=== PATIENT | female | born 1970 | race Caucasian/White ===

== ENCOUNTER → 2017-03-05 | Outpatient (CLI) | payer OTHER ==
--- NOTE | 2017-03-05 15:18 | RAD ---
DATE: 03/05/2017 EXAM: DIGITAL DIAGNOSTIC LT HISTORY: Mass left breast COMPARISON: 09/02/2016 This study was interpreted with the benefit of Computerized Aided Detection (CAD). FINDINGS: Breast Density: HETERO The breast parenchyma Is heterogeneiously dense, which could reduce sensitivity of mammography. Breast parenchyma level C. The area of concern, palpable abnormality, was marked. Corresponding to the palpable abnormality is a well-defined 2.6 cm mass at the 2:00 position 3 cm from the nipple. No additional change is seen relative to the previous exam. Targeted ultrasound was performed. Corresponding to the mass is a well-defined cyst measuring approximately 2.4 cm in greatest dimension. IMPRESSION: Simple cyst left breast BI-RADS CATEGORY: 2 BENIGN FINDING(S) RECOMMENDED FOLLOW-UP: 6M 6 MONTH FOLLOW-UP PQRS compliance statement: Patient information was entered into a reminder system with a target due date 09/02/2017 for the next mammogram. Mammography is a sensitive method for finding small breast cancers, but it does not detect them all and is not a substitute for careful clinical examination. A negative mammogram does not negate a clinically suspicious finding and should not result in delay in biopsying a clinically suspicious abnormality. "Our facility is accredited by the [employer] Mammography Program."
--- NOTE | 2017-03-05 15:29 | RAD ---
DATE: 03/05/2017 EXAM: DIGITAL DIAGNOSTIC LT HISTORY: Mass left breast COMPARISON: 09/02/2016 This study was interpreted with the benefit of Computerized Aided Detection (CAD). FINDINGS: Breast Density: HETERO The breast parenchyma Is heterogeneiously dense, which could reduce sensitivity of mammography. Breast parenchyma level C. The area of concern, palpable abnormality, was marked. Corresponding to the palpable abnormality is a well-defined 2.6 cm mass at the 2:00 position 3 cm from the nipple. No additional change is seen relative to the previous exam. Targeted ultrasound was performed. Corresponding to the mass is a well-defined cyst measuring approximately 2.4 cm in greatest dimension. IMPRESSION: Simple cyst left breast BI-RADS CATEGORY: 2 BENIGN FINDING(S) RECOMMENDED FOLLOW-UP: 6M 6 MONTH FOLLOW-UP PQRS compliance statement: Patient information was entered into a reminder system with a target due date 09/02/2017 for the next mammogram. Mammography is a sensitive method for finding small breast cancers, but it does not detect them all and is not a substitute for careful clinical examination. A negative mammogram does not negate a clinically suspicious finding and should not result in delay in biopsying a clinically suspicious abnormality. "Our facility is accredited by the [employer]ammography [employer]." DICTATED and SIGNED BY: FATEMEH SLAUGHTER MD DATE: 03/05/17 1513 MTDD
== END | disposition home or self-care (01) ==
LOC: MAMMO 14:37
PROVIDERS: ATTEND Obstetrics & Gynecology
DX: N63 Unspecified lump in breast (principal); N60.02 Solitary cyst of left breast
CPT/HCPCS: 76641; G0206; 77065

== ENCOUNTER → 2017-10-01 | Outpatient (CLI) | payer OTHER | END | disposition home or self-care (01) | LOC: KCIC MAMMO 12:27 | DX: Z12.31 Encounter for screening mammogram for malignant neoplasm of breast (principal) | CPT/HCPCS: 77063; 77067 ==

== ENCOUNTER → 2018-05-13 | Outpatient (CLI) | payer OTHER ==
[2018-05-13 11:14] LABS: BASO % 1 % (0-3); EOS # 0.1 x10^3/uL (0.0-0.7); EOS % 2 % (0-3); HEMATOCRIT 39.3 % (36.0-47.0); HEMOGLOBIN 13.4 g/dL (12.0-15.5); LYMPH # 1.1 x10^3/uL (1.0-4.8); LYMPH % 22 % (24-48); MEAN CORPUSCULAR HEMOGLOBIN 29 pg (25-35); MEAN CORPUSCULAR HGB CONC 34 g/dL (31-37); MEAN CORPUSCULAR VOLUME 86 fL (79-100); MONO # 0.4 x10^3/uL (0.0-1.1); MONO % 8 % (0-9); NEUT # 3.5 x10^3uL (1.8-7.7); NEUT % 68 % (31-73); PLATELET COUNT 234 x10^3/uL (140-400); RED BLOOD COUNT 4.58 x10^6/uL (3.50-5.40); RED CELL DISTRIBUTION WIDTH 13.7 % (11.5-14.5); WHITE BLOOD COUNT 5.2 x10^3/uL (4.0-11.0)
[2018-05-13 12:03] LABS: FREE T4 0.94 ng/dL (0.76-1.46); THYROID STIM HORMONE (TSH) 0.772 uIU/mL (0.358-3.74)
[2018-05-15 20:09] LABS: CYCLIC CITRULLIN PEP AB 8 units (0-19)
== END | disposition home or self-care (01) ==
LOC: LAB 10:49
PROVIDERS: ATTEND Family Medicine
DX: M25.50 Pain in unspecified joint (principal); R53.83 Other fatigue
CPT/HCPCS: 36415; 84439; 84443; 85025; 85651; 86038; 86200

== ENCOUNTER → 2018-06-10 | Outpatient (CLI) | payer OTHER ==
[2018-06-11 00:12] LABS: ESTRADIOL LEVEL 107.6 pg/mL (.)
[2018-06-11 01:15] LABS: FSH 62.5 mIU/mL (.)
== END | disposition home or self-care (01) ==
LOC: LAB 12:10
PROVIDERS: ATTEND Family Medicine
DX: N92.6 Irregular menstruation, unspecified (principal)
CPT/HCPCS: 36415; 82670; 83001; 83002

== ENCOUNTER → 2018-09-09 | Outpatient (CLI) | payer OTHER ==
[2018-09-09 19:14] LABS: ESTRADIOL LEVEL <5.0 pg/mL (.); FSH 82.2 mIU/mL (.); LUTEINIZING HORMONE 26.2 mIU/mL (.); PROGESTERONE <0.1 ng/mL (.)
[2018-09-12 07:13] LABS: TESTOSTERONE FREE 0.06 ng/dL (0.10-0.85); TESTOSTERONE TOTAL 9 ng/dL (8-48)
== END | disposition home or self-care (01) ==
LOC: LAB 12:21
PROVIDERS: ATTEND Obstetrics & Gynecology
DX: R53.83 Other fatigue (principal); Z68.1 Body mass index [BMI] 19.9 or less, adult
CPT/HCPCS: 36415; 82627; 82670; 83001; 83002; 84144; 84402; 84403; 84443

== ENCOUNTER → 2018-10-07 | Outpatient (CLI) | payer OTHER ==
--- NOTE | 2018-10-07 17:50 | KCIC ---
Bilateral digital screening mammograms with 3-D tomosynthesis: Reason for examination: Routine screening. Comparison is made to previous studies dated 10/01/2017, 03/05/2017 and 09/02/2016. Bilateral mammograms in CC and oblique projections were obtained with 2-D imaging and 3-D tomosynthesis imaging on a Siemens Inspiration unit and reviewed on the workstation. Interpretation was made with the benefit of CAD. The skin and nipples show no abnormalities. No abnormal axillary lymph nodes are seen. The breast parenchyma is extremely dense. (Breast density: Category D.) There continues to be a small circumscribed lesion at the 2:00 B position of the left breast which has regressed when compared to previous examination. There does however appear to be some new nodularity posterior centrally adjacent to the chest wall on the right oblique view. Further evaluation with ultrasound is recommended. There are no other new dominant masses, suspicious calcifications or architectural distortion. Impression: New nodularity posterior centrally adjacent to the chest wall on the right oblique view. Recommend further evaluation with ultrasound. Your patient's mammogram demonstrates that she has dense breast tissue (breast density category C or D), which could hide abnormalities, and if she has other risk factors for breast cancer that have been identified, she might benefit from supplemental screening tests that may be suggested by you as her ordering physician. Dense breast tissue, in and of itself, is a relatively common condition. Therefore, this information is not provided to cause undue concern, but rather to raise your awareness and to promote discussion with your patient regarding the presence of other risk factors, in addition to dense breast tissue. Your patient's mammography results will be sent to her. BI-RAD Category 0: Incomplete. Needs additional imaging evaluation. "Our facility is accredited by the [employer] Mammography [employer]." This patient's information has been entered into a reminder system for the patient to be notified with the results of her examination and a target date for the next mammogram. Electronically signed by: Aurora Benitez MD (10/07/2018 5:46 PM) [facility]
== END | disposition home or self-care (01) ==
LOC: KCIC MAMMO 13:32
PROVIDERS: ATTEND Obstetrics & Gynecology
DX: Z12.31 Encounter for screening mammogram for malignant neoplasm of breast (principal)
CPT/HCPCS: 77063; 77067

== ENCOUNTER → 2018-10-14 | Outpatient (CLI) | payer OTHER ==
--- NOTE | 2018-10-14 15:03 | RAD ---
INDICATION: 47 years year-old female presents for further evaluation of abnormality seen on prior mammogram 10/07/2018 TECHNIQUE: Targeted high resolution sonography of the region of clinical concern was performed. COMPARISON: Prior imaging dating back to 10/07/2018, 03/05/2017, 10/01/2017 FINDINGS: Sonographic evaluation of the area of focal demonstrates unremarkable fibroglandular tissue without evidence for suspicious cystic or solid mass. IMPRESSION: No sonographic evidence of malignancy. The findings on prior mammogram may have represented overlap of normal fibroglandular tissue. BI-RADS CATEGORY: 3 PROBABLY BENIGN FINDING(S)-SHORT INTERVAL FOLLOW-UP SUGGESTED RECOMMENDED FOLLOW-UP: 6M 6 MONTH FOLLOW-UP as the abnormality seen on prior mammography is not definitively seen by ultrasound, follow-up mammogram in 6 months including full field CC and MLO views of the right breast with associated spot compression views is recommended. PQRS compliance statement: Patient information was entered into a reminder system with a target due date 04/13/2019 for the next mammogram.
== END | disposition home or self-care (01) ==
LOC: US 14:06
PROVIDERS: ATTEND Obstetrics & Gynecology
DX: R92.8 Other abnormal and inconclusive findings on diagnostic imaging of breast (principal)
CPT/HCPCS: 76641

== ENCOUNTER → 2019-03-06 | Outpatient (CLI) | payer OTHER ==
--- NOTE | 2019-03-06 15:48 | KCIC ---
Examination: 5 views of the lumbar spine, 5 views of the cervical spine, 3 views of the bilateral knees HISTORY: History of back pain, knee pain, neck pain COMPARISON: 05/30/2015 FINDINGS: Bilateral knees: The alignment of the knee joint grossly appears unremarkable. There is no acute fracture identified. Cervical spine: The cervical vertebral body heights are maintained. The facets are well aligned. The spinolaminar line is maintained. Small anterior osteophyte formation identified at C5-C6 vertebral level. The lateral masses of C1 are aligned with C2 vertebra. The C2 dens appears intact. Lumbar spine: The lumbar vertebral body heights are maintained. No evidence of listhesis. The facets are well aligned. Mild degenerative changes identified in the facet joint likely degeneration particularly at L3-L4, L4-L5 vertebral level. IMPRESSION: 1. No acute osseous findings. 2. Mild degenerative changes lumbar and cervical spine. Electronically signed by: John Flores MD (03/06/2019 3:45 PM) [facility]
== END | disposition home or self-care (01) ==
LOC: KCIC 14:02
PROVIDERS: ATTEND Family Medicine
DX: M25.78 Osteophyte, vertebrae (principal); M47.812 Spondylosis without myelopathy or radiculopathy, cervical region; M47.816 Spondylosis without myelopathy or radiculopathy, lumbar region
CPT/HCPCS: 72050; 72110; 73562

== ENCOUNTER → 2019-05-26 | Outpatient (CLI) | payer OTHER ==
--- NOTE | 2019-05-26 11:10 | KCIC ---
EXAM: Right breast diagnostic mammogram with tomosynthesis. HISTORY: 48-year-old female presents for 6 month follow-up evaluation of asymmetry within the right breast demonstrated on a mammogram dated 10/07/2018. TECHNIQUE: Full-field digital craniocaudal, true lateral and mediolateral oblique 2D and 3D tomosynthesis images of the right breast are obtained for evaluation. Computer aided detection with Elite DailyD software version 9.3 was applied. COMPARISON: 10/07/2018, 03/05/2017 BREAST PARENCHYMAL DENSITY: Level D - Extremely dense. FINDINGS: There is no new suspicious mass, microcalcification or region of architectural distortion. The previously demonstrated asymmetry within the posterior aspect of the right breast is stable or slightly less conspicuous compared to the prior studies. No new suspicious lesion is seen. IMPRESSION: BI-RADS Category 2: Benign finding(s). RECOMMENDATION: Bilateral mammography in 4 months is recommended to correspond with a previously established mammography interval. If your mammogram demonstrates that you have dense breast tissue, which could hide abnormalities, and if you have other risk factors for breast cancer that have been identified, you might benefit from supplemental screening tests that may be suggested by your ordering physician. Dense breast tissue, in and of itself, is a relatively common condition. This information is not provided to cause undue concern, but rather to raise your awareness and to promote discussion with your physician regarding the presence of other risk factors, in addition to dense breast tissue. A report of your mammography results will be sent to you and your physician. You should contact your physician if you have any questions or concerns regarding this report. Mammography is a sensitive method for finding small breast cancers, but it does not detect them all and is not a substitute for careful clinical examination. A negative mammogram does not negate a clinically suspicious finding and should not result in delay in biopsying a clinically suspicious abnormality. PQRS compliance statement - Patient information was entered into a reminder system with a target due date for the next mammogram. "Our facility is accredited by the [employer] Mammography Program." Electronically signed by: Yamel Coelho MD (05/26/2019 11:07 AM) [facility]
== END | disposition home or self-care (01) ==
LOC: KCIC MAMMO 10:22
PROVIDERS: ATTEND Obstetrics & Gynecology
DX: R92.8 Other abnormal and inconclusive findings on diagnostic imaging of breast (principal)
CPT/HCPCS: 77065; G0279; 77061

== ENCOUNTER → 2019-06-08 | Outpatient (CLI) | payer OTHER ==
[2019-06-08 13:14] LABS: BASO % 0 % (0-3); EOS # 0.1 x10^3/uL (0.0-0.7); EOS % 2 % (0-3); HEMATOCRIT 40.2 % (36.0-47.0); HEMOGLOBIN 13.3 g/dL (12.0-15.5); LYMPH # 1.4 x10^3/uL (1.0-4.8); LYMPH % 27 % (24-48); MEAN CORPUSCULAR HEMOGLOBIN 29 pg (25-35); MEAN CORPUSCULAR HGB CONC 33 g/dL (31-37); MEAN CORPUSCULAR VOLUME 87 fL (79-100); MONO # 0.3 x10^3/uL (0.0-1.1); MONO % 5 % (0-9); NEUT # 3.5 x10^3/uL (1.8-7.7); NEUT % 66 % (31-73); PLATELET COUNT 237 x10^3/uL (140-400); RED BLOOD COUNT 4.61 x10^6/uL (3.50-5.40); WHITE BLOOD COUNT 5.3 x10^3/uL (4.0-11.0)
[2019-06-08 13:33] LABS: ALBUMIN/GLOBULIN RATIO 1.2 (1.0-1.7); CALCIUM 9.1 mg/dL (8.5-10.1); CREATININE 0.9 mg/dL (0.6-1.0); GFR 66.3; POTASSIUM 3.9 mmol/L (3.5-5.1); TOTAL BILIRUBIN 0.6 mg/dL (0.2-1.0); TOTAL PROTEIN 7.4 g/dL (6.4-8.2)
[2019-06-08 19:13] LABS: FSH 70.9 mIU/mL (.); LUTEINIZING HORMONE 36.7 mIU/mL (.)
== END | disposition home or self-care (01) ==
LOC: LAB 12:08
PROVIDERS: ATTEND Family Medicine
DX: R42 Dizziness and giddiness (principal); R23.2 Flushing
CPT/HCPCS: 36415; 80053; 82306; 82672; 83001; 83002; 84443; 84550; 85025

== ENCOUNTER → 2019-08-04 | Outpatient (CLI) | payer OTHER ==
[2019-08-04 10:24] LABS: CHOLESTEROL/HDL RATIO 2.5
== END | disposition home or self-care (01) ==
LOC: LAB 09:06
PROVIDERS: ATTEND Family Medicine
DX: Z13.220 Encounter for screening for lipoid disorders (principal)
CPT/HCPCS: 36415; 80061

== ENCOUNTER → 2019-08-07 | Outpatient (CLI) | payer OTHER ==
--- NOTE | 2019-08-08 11:23 | KCIC ---
Coronary artery calcium score dated 08/07/2019. No comparison available. Clinical Indication: Calcium screening. Technical factors: Computed tomography of the heart was performed with ECG gating, suspended respiration and without the administration of contrast material. Post processing was performed on the 3-D computer workstation using diastolic phase images to measure the amount of coronary vascular calcium. Scoring was aquired using the Agatston Method. Results: Thorax: No significant abnormality is identified in the lungs or mediastinum. Note that this CT exam is limited to the heart and adjacent structures. Coronary arteries: Calcium is absent. Total Agaston calcium score equals 0. Coronary vascular calcium is not detected with this exam. This does not absolutely rule out the presence of atherosclerotic plaque, including unstable plaque, but does imply a very low likelihood of significant luminal obstruction. A negative test may be consistent with a low risk of cardiovascular event in the next 2 to 5 years. Conclusions: Normal study, no coronary artery calcium identified. Recommendations: Healthy lifestyle choices including eating appropriately and exercise are encouraged. Additional supporting information concerning the findings and recommendation contained within this report can be found in the consensus statements on coronary vascular calcium published by the [employer] and [employer] 5 Conference (Circulation 1996; 94: 2485-1126; J Am Avis Cardiol 2000; 36: 326-340 and Circulation 2000; 101: 111-116). Electronically signed by: Daniele Ching MD (08/08/2019 11:19 AM) [facility] [place]
== END | disposition home or self-care (01) ==
LOC: KCIC CT 09:54
PROVIDERS: ATTEND Family Medicine
DX: Z13.6 Encounter for screening for cardiovascular disorders (principal)
CPT/HCPCS: 75571

== ENCOUNTER → 2019-09-11 | Outpatient (CLI) | payer OTHER ==
[~2019-09-11] MED LIST: ZOLPIDEM 5 MG TABLET. PO ONE
--- NOTE | 2019-09-14 13:20 | SLEEP ---
DATE OF STUDY: 09/12/2019 SLEEP STUDY ATTENDING PHYSICIAN: Daniele Beck MD REFERRING PHYSICIAN: Daphnie Jordan MD The patient is 48 years old who weighs 105 pounds with a BMI of 20. The patient's Evans[place] score was 5. The patient underwent diagnostic sleep study performed at [facility]. During the night study, the patient spent 440 minutes in bed and slept for 290 minutes with a sleep efficiency of 66%. Sleep latency was 23 minutes with a REM latency of 402 minutes. Sleep architecture showed increased stage 1 and stage 2 sleep, normal slow wave and reduced REM sleep. During the night study, the patient had no obstructive mixed or central apneas and no hypopneas. The patient's apnea-hypopnea index for the entire night was 0 per hour. Nocturnal oximetry study revealed mean oxygen saturations of 96% with the lowest of 88%. No clinically significant desaturations were observed. PLMS were seen at an index of 31 per hour and 5 per hour caused EEG arousals. EKG monitoring revealed a mean heart rate of 81 beats per minute, no sustained arrhythmias observed. Due to low AHI, the patient did not meet the split night criteria for CPAP initiation. IMPRESSION: 1. No clinically significant sleep disorder breathing. The patient's apnea-hypopnea index for the entire night was 0 per hour. 2. No clinically significant nocturnal hypoxia. 3. Moderate periodic limb movements. RECOMMENDATIONS: 1. The patient did not meet the split night criteria for CPAP initiation. 2. Avoid MAIL MANAGER depressants. 3. The patient should also be further evaluated for symptoms of restless legs during the day. TELMA FORD MD DR: MILTON/keith JOB#: [id number] / [id number] DAPHNIE Lucio MD, MICHAEL MD
== END | disposition home or self-care (01) ==
LOC: SLPLAB 19:15
PROVIDERS: ATTEND Internal Medicine Cardiovascular Disease
DX: G47.61 Periodic limb movement disorder (principal); R53.83 Other fatigue
CPT/HCPCS: 95810

== ENCOUNTER → 2019-09-28 | Day surgery (SDC) | payer OTHER ==
[~2019-09-28] MED LIST changes: +HYDROmorphone 2 MG/ML VIAL IV PRN; +IV RINGERS,LACTATED 1000ML 1,000 ML IV SCH; +LIDOCAINE 1% PF 2 ML VIAL. ID PRN; +MORPHINE SULFATE 2 MG/ML VIAL. IV PRN; +MULT-496 PO; +ONDANSETRON PF 4 MG/2 ML VIAL. IV PRN; +PROCHLORPERAZINE 10 MG/2 ML VIAL. IV PRN; +PROPOFOL 40 ML IV ONE; +SODIUM PHOSPHATES 19/7GM 133 ML ENEMA. PR ONE; -ZOLPIDEM 5 MG TABLET. PO ONE; +fentaNYL PF VIAL 100 MCG/2 ML VIAL IV PRN
--- NOTE | 2019-09-28 11:34 | PREOP HP ---
DATE OF SERVICE: DATE OF PROCEDURE: 09/28/2019 REASON FOR PROCEDURE: Dysphagia and colorectal cancer screening. HISTORY OF PRESENT ILLNESS: This is a 48-year-old female who presents with dysphagia and for colorectal cancer screening. ALLERGIES: 1. ERYTHROMYCIN. 2. SULFA. PAST MEDICAL HISTORY: Schatzki's ring and GERD as well as hemorrhoids. FAMILY MEDICAL HISTORY: Colon polyps in her father and mother. MEDICATIONS: MAR reviewed. SOCIAL HISTORY: No tobacco, alcohol or IV drug abuse. REVIEW OF SYSTEMS: A 13-point review of systems was done and is positive as per HPI and otherwise negative. PHYSICAL EXAMINATION: VITAL SIGNS: She is afebrile and her vital signs are stable. GENERAL: She is a well-developed, well-nourished female, in no apparent distress. HEENT: Oropharynx is clear. CARDIOVASCULAR: S1, S2. LUNGS: Clear. ABDOMEN: Normoactive bowel sounds, soft, nontender, nondistended. EXTREMITIES: No edema. NEUROLOGIC: Awake, alert and oriented x 3. ASSESSMENT AND PLAN: 1. Dysphagia. 2. Colorectal cancer screening. The risks and benefits of the upper and lower endoscopy were explained and she has agreed to proceed. Thank you for allowing me to participate in the care of this patient. CHARISSA LUCIANO MD DR: YEMI/keith JOB#: [id number] / [id number]
[2019-09-28 11:42] VITALS: BP 114/63
--- NOTE | 2019-09-29 17:06 | PATHOLOGY ---
[facility] Accession Number: [id number] . 01 Material submitted: . PART A: small bowel - SMALL BOWEL BIOPSY PART B: stomach - GASTRIC ANTRUM/BODY BIOPSY PART C: stomach - FUNDUS POLYP BIOPSY. Modifiers: fundus PART D: esophagus - DISTAL ESOPHAGUS BIOPSY. Modifiers: distal PART E: esophagus - MID ESOPHAGUS BIOPSY. Modifiers: mid . 01 Clinical history: . GERD, CRC . 02 Diagnosis: A. Small bowel biopsies: - No significant pathologic abnormalities. . B. Gastric biopsies, gastric body and gastric antrum: - Congestion and focal slight chronic inflammation. . C. Gastric biopsy, fundus polyp: - Fundic gland polyp . D. Esophageal biopsies, distal esophagus: - Segments of hyperplastic squamous esophageal mucosa and esophagogastric mucosa showing chronic inflammation. . E. Esophageal biopsy, middle esophagus: - Segment of squamous esophageal mucosa showing no significant pathologic abnormalities. . (JPM:henry; 09/29/2019) [facility] 09/29/2019 1704 Local . 02 Comment: Sections of the small bowel biopsy reveal segments of duodenal and small intestine mucosa. Where best oriented, the mucosal villi show no sprue-like changes or significant inflammatory changes. . Sections of the gastric biopsy reveal segments of gastric antral and gastric fundic mucosa showing congestion and focal slight chronic inflammation. A properly-controlled immunoperoxidase stain for Helicobacter is negative for Helicobacter organisms. . Sections of the gastric fundic polyp biopsy reveal a fundic gland polyp. There are no adenomatous changes or evidence of malignancy. . Sections of the distal esophageal biopsy reveal a segment of tangentially-oriented hyperplastic squamous esophageal mucosa, and a segment of esophagogastric mucosa showing mild to moderate chronic inflammation. The findings are consistent with reflux esophagitis. There is no evidence of Campbell's change, dysplasia, or malignancy. . Sections of the middle esophagus biopsy reveal a tangentially-oriented segment of squamous esophageal mucosa showing no significant pathologic abnormalities. . Special stain performed (B1): Immunoperoxidase stain for Helicobacter . (JPM:mm; 09/29/2019) . 02 Electronically signed: . Simón Zeng MD, Pathologist NPI- [id number] . 01 Gross description: . A. Received in formalin labeled "Chari Farnsworth, small bowel BX," are 5 segments of haines soft tissue measuring 1.1 x 0.9 x 0.3 cm in aggregate dimensions and ranging from 0.3 to 0.5 cm in maximum dimension. The specimen is submitted entirely in cassette A1. . B. Received in formalin labeled "Chari Farnsworth, gastric antrum and body BX," are 4 segments of haines soft tissue measuring 1.5 x 1.0 x 0.3 cm in aggregate dimensions and ranging from 0.4 to 0.7 cm in maximum dimension. The specimen is submitted entirely in cassette B1. . C. Received in formalin labeled "Chari Farnsworth, fundus polyp," and additionally labeled on the requisition as "BX," is a single segment of haines soft tissue measuring 0.6 cm in maximum dimension. The specimen is entirely submitted in cassette C1. . D. Received in formalin labeled "Chari Farnsworth, distal esophagus BX," are 2 segments of haines soft tissue measuring 1.1 x 0.2 x 0.1 cm in aggregate dimensions and ranging from 0.5 to 0.6 cm in maximum dimension. The specimen is submitted entirely in cassette D1. . E. Received in formalin labeled "Chari Farnsworth, mid esophagus BX," is a single segment of haines soft tissue measuring 0.5 cm in maximum dimension. The specimen is entirely submitted in cassette E1. (TSD; 09/28/2019) /TOB 09/28/2019 1752 Local . 02 Pathologist provided ICD-10: K29.50, K31.7, K20.9 . 02 CPT . 632968, 420033, [id number], [id number], [id number], [id number] Specimen Comment: A courtesy copy of this report has been sent to [phone], [phone] Specimen Comment: [id number] Specimen Comment: Report sent to / DR HOFF Performed at: 01 [facility] [address], [place], [place] [id number] MD Dante Bennett MD Phone: [phone] Performed at: 02 [facility] [address] [place], [place] [id number] MD Simón Zeng MD Phone: [phone]
== END ==
LOC: ENDOS 09:11
PROVIDERS: ATTEND Internal Medicine Gastroenterology
DX: Z12.11 Encounter for screening for malignant neoplasm of colon (principal); K29.50 Unspecified chronic gastritis without bleeding; K21.0 Gastro-esophageal reflux disease with esophagitis; K31.7 Polyp of stomach and duodenum; K22.2 Esophageal obstruction; K64.0 First degree hemorrhoids; K63.89 Other specified diseases of intestine; Z83.71 Family history of colonic polyps; Z88.1 Allergy status to other antibiotic agents
CPT/HCPCS: 43239; 43450; 45378; 81025; J2704

== ENCOUNTER → 2019-10-05 | Outpatient (CLI) | payer OTHER ==
[2019-09-28 11:42] VITALS: BP 114/63
[~2019-10-05] MED LIST changes: -HYDROmorphone 2 MG/ML VIAL IV PRN; -IV RINGERS,LACTATED 1000ML 1,000 ML IV SCH; -LIDOCAINE 1% PF 2 ML VIAL. ID PRN; -MORPHINE SULFATE 2 MG/ML VIAL. IV PRN; -ONDANSETRON PF 4 MG/2 ML VIAL. IV PRN; -PROCHLORPERAZINE 10 MG/2 ML VIAL. IV PRN; -PROPOFOL 40 ML IV ONE; -SODIUM PHOSPHATES 19/7GM 133 ML ENEMA. PR ONE; -fentaNYL PF VIAL 100 MCG/2 ML VIAL IV PRN
[2019-10-05 13:34] LABS: BILIRUBIN,URINE NEGATIVE (NEG); CLARITY,URINE CLEAR; COLOR,URINE YELLOW; NITRITE,URINE NEGATIVE (NEG); PROTEIN,URINE NEGATIVE (NEG-TRACE); UROBILINOGEN,URINE 0.2 mg/dL (0.2 mg/dL)
[2019-10-05 13:47] LABS: BACTERIA,URINE FEW /HPF (0-FEW); RBC,URINE 0 /HPF (0-2)
[2019-10-05 13:48] LABS: SQUAMOUS EPITHELIAL CELL,UR FEW /LPF
== END | disposition home or self-care (01) ==
LOC: LAB 12:57
PROVIDERS: ATTEND Family Medicine
DX: R30.0 Dysuria (principal)
CPT/HCPCS: 81001; 87086

== ENCOUNTER → 2019-10-12 | Outpatient (CLI) | payer OTHER ==
[2019-09-28 11:42] VITALS: BP 114/63
[2019-10-12 09:25] LABS: BACTERIA,URINE 0 /HPF (0-FEW); BILIRUBIN,URINE NEGATIVE (NEG); CLARITY,URINE CLEAR; COLOR,URINE YELLOW; NITRITE,URINE NEGATIVE (NEG); PROTEIN,URINE NEGATIVE (NEG-TRACE); RBC,URINE 0 /HPF (0-2); SQUAMOUS EPITHELIAL CELL,UR FEW /LPF; UROBILINOGEN,URINE 0.2 mg/dL (0.2 mg/dL); WBC,URINE OCC /HPF (0-4)
== END | disposition home or self-care (01) ==
LOC: LAB 08:54
PROVIDERS: ATTEND Family Medicine
DX: R30.0 Dysuria (principal)
CPT/HCPCS: 81001; 87086

== ENCOUNTER → 2019-11-14 | Outpatient (CLI) | payer OTHER ==
[2019-09-28 11:42] VITALS: BP 114/63
== END | disposition home or self-care (01) ==
LOC: SPEC 16:08
PROVIDERS: ATTEND Obstetrics & Gynecology
DX: Z01.419 Encounter for gynecological examination (general) (routine) without abnormal findings (principal)
CPT/HCPCS: 88175

== ENCOUNTER → 2020-01-24 | Outpatient (CLI) | payer OTHER ==
[2019-09-28 11:42] VITALS: BP 114/63
[2020-01-24 09:47] LABS: BASO % 1 % (0-3); EOS # 0.2 x10^3/uL (0.0-0.7); EOS % 4 % (0-3); HEMATOCRIT 43.3 % (36.0-47.0); HEMOGLOBIN 14.1 g/dL (12.0-15.5); LYMPH # 1.6 x10^3/uL (1.0-4.8); LYMPH % 27 % (24-48); MEAN CORPUSCULAR HEMOGLOBIN 28 pg (25-35); MEAN CORPUSCULAR HGB CONC 33 g/dL (31-37); MEAN CORPUSCULAR VOLUME 86 fL (79-100); MONO # 0.4 x10^3/uL (0.0-1.1); MONO % 8 % (0-9); NEUT # 3.7 x10^3/uL (1.8-7.7); NEUT % 61 % (31-73); PLATELET COUNT 276 x10^3/uL (140-400); RED BLOOD COUNT 5.02 x10^6/uL (3.50-5.40); RED CELL DISTRIBUTION WIDTH 13.4 % (11.5-14.5)
[2020-01-24 09:56] LABS: ALBUMIN 4.2 g/dL (3.4-5.0); ALBUMIN/GLOBULIN RATIO 1.2 (1.0-1.7); ALK PHOS 66 U/L (46-116); ALT (SGPT) 19 U/L (14-59); ANION GAP 6 (6-14); AST (SGOT) 15 U/L (15-37); BLOOD UREA NITROGEN 18 mg/dL (7-20); BUN/CREATININE RATIO 23 (6-20); CALCIUM 9.4 mg/dL (8.5-10.1); CARBON DIOXIDE 33 mmol/L (21-32); CHLORIDE 102 mmol/L (98-107); CHOLESTEROL 239 mg/dL (0-200); CREATININE 0.8 mg/dL (0.6-1.0); GFR 75.6; GLUCOSE 96 mg/dL (70-99); HDLC 103 mg/dL (40-60); LDLC 125 mg/dL (0-100); SODIUM 141 mmol/L (136-145); TOTAL PROTEIN 7.8 g/dL (6.4-8.2); TRIGLYCERIDES 53 mg/dL (0-150); URIC ACID 3.2 mg/dL (2.6-6.0); VLDLC 11 mg/dL (0-40)
[2020-01-24 09:58] LABS: C-REACTIVE PROTEIN < 0.5 mg/L (0-3.3); CHOLESTEROL/HDL RATIO 2.3
[2020-01-24 20:08] LABS: ANTI-STREPTOLYSIN O 25.6 IU/mL (0.0-200.0)
[2020-01-24 21:07] LABS: RHEUMATOID FACTOR <10.0 IU/mL (0.0-13.9)
== END | disposition home or self-care (01) ==
LOC: LAB 08:54
PROVIDERS: ATTEND Family Medicine
DX: Z13.220 Encounter for screening for lipoid disorders (principal); R42 Dizziness and giddiness; M25.50 Pain in unspecified joint
CPT/HCPCS: 36415; 80053; 80061; 84550; 85025; 85651; 86038; 86060; 86140; 86431

== ENCOUNTER → 2020-02-12 | Outpatient (CLI) | payer OTHER ==
[2019-09-28 11:42] VITALS: BP 114/63
[2020-02-13 13:11] LABS: C3 COMPLEMENT 115 mg/dL (82-167); C4 COMPLEMENT 27 mg/dL (14-44)
[2020-02-14 10:11] LABS: ANTI-DS DNA 1 IU/mL (0-9); RNP ANTIBODY 0.2 AI (0.0-0.9); SMITH AB <0.2 AI (0.0-0.9); SSA ANTIBODY <0.2 AI (0.0-0.9); SSB ANTIBODY <0.2 AI (0.0-0.9)
== END | disposition home or self-care (01) ==
LOC: LAB 13:41
PROVIDERS: ATTEND Internal Medicine Rheumatology
DX: M25.50 Pain in unspecified joint (principal)
CPT/HCPCS: 36415; 85651; 86140; 86160; 86235; 86255

== ENCOUNTER → 2020-03-20 | Outpatient (CLI) | payer OTHER ==
[2019-09-28 11:42] VITALS: BP 114/63
== END | disposition home or self-care (01) ==
LOC: LAB 13:18
PROVIDERS: ATTEND Internal Medicine Pulmonary Disease
DX: Z11.59 Encounter for screening for other viral diseases (principal)
CPT/HCPCS: U0003-CS

== ENCOUNTER → 2020-05-13 | Outpatient (CLI) | payer OTHER ==
[2019-09-28 11:42] VITALS: BP 114/63
[2020-05-13 13:44] LABS: BILIRUBIN,URINE NEGATIVE (NEG); CLARITY,URINE TURBID; COLOR,URINE YELLOW; NITRITE,URINE NEGATIVE (NEG); PH,URINE 7.5 (<5.0-8.0); PROTEIN,URINE NEGATIVE (NEG-TRACE); UROBILINOGEN,URINE 0.2 mg/dL (0.2 mg/dL)
[2020-05-13 13:58] LABS: AMORPHOUS SEDIMENT,UR PRESENT /HPF; BACTERIA,URINE FEW /HPF (0-FEW); RBC,URINE OCC /HPF (0-2); SQUAMOUS EPITHELIAL CELL,UR OCC /LPF; WBC,URINE OCC /HPF (0-4)
== END | disposition home or self-care (01) ==
LOC: LAB 12:48
PROVIDERS: ATTEND Family Medicine
DX: R30.0 Dysuria (principal)
CPT/HCPCS: 81001

== ENCOUNTER → 2020-07-09 | Outpatient (CLI) | payer OTHER ==
[2019-09-28 11:42] VITALS: BP 114/63
--- NOTE | 2020-07-09 13:22 | RAD ---
EXAM: Right knee, 3 views. HISTORY: Pain. COMPARISON: None. FINDINGS: 3 views of the right knee are obtained. There is no fracture, dislocation or subluxation. There is no significant joint effusion. IMPRESSION: No acute osseous finding. Electronically signed by: Yamel Coelho MD (07/09/2020 1:19 PM) [id number]
== END ==
LOC: RAD 12:35
PROVIDERS: ATTEND Family Medicine
DX: M25.561 Pain in right knee (principal)
CPT/HCPCS: 73562

== ENCOUNTER → 2020-07-25 | Outpatient (CLI) | payer OTHER ==
[2019-09-28 11:42] VITALS: BP 114/63
== END ==
LOC: LAB 13:44
PROVIDERS: ATTEND Internal Medicine Pulmonary Disease
DX: Z20.828 Contact with and (suspected) exposure to other viral communicable diseases (principal)
CPT/HCPCS: U0003

== ENCOUNTER → 2020-08-15 | Outpatient (CLI) | payer OTHER ==
[2019-09-28 11:42] VITALS: BP 114/63
--- NOTE | 2020-08-15 16:21 | KCIC ---
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 Chronic pain for years. Crepitus. History of ski accident. Concern for posterior chronic posterior lateral choroidal laxity or possible PCL injury. TECHNIQUE: Multiplanar multisequence MRI of the right knee was obtained without contrast. COMPARISON: Right knee radiograph 07/09/2020 FINDINGS: MENISCI: The medial and lateral menisci are intact. LIGAMENTS: The anterior and posterior cruciate ligaments are intact. The medial collateral ligament and lateral collateral ligament complex including popliteus tendon and iliotibial band are intact. EXTENSOR MECHANISM: The quadriceps and patellar tendons are intact. Fat pads are normal. Retinacula are intact. BONES AND CARTILAGE: No acute fracture or marrow edema. There is moderate deep partial and full-thickness cartilage fissure and several defects along the patella, greatest at the median ridge. Trochlear cartilage is intact. Medial and lateral compartment cartilage is intact. OTHER: No joint effusion tiny Snell cyst. Muscles and remaining tendons are intact. IMPRESSION: 1. No meniscal or ligamentous injury. 2. Moderate deep partial and full-thickness cartilage fissuring and small cartilage defects along the patella. Electronically signed by: Carol Ann Lara MD (08/15/2020 4:18 PM) [id number]
== END ==
LOC: KCIC MRI 13:46
PROVIDERS: ATTEND Orthopaedic Surgery
DX: M25.561 Pain in right knee (principal)
CPT/HCPCS: 73721

== ENCOUNTER → 2021-03-24 | Outpatient (CLI) | payer OTHER ==
[2019-09-28 11:42] VITALS: BP 114/63
[2021-03-24 10:40] LABS: BASO % 1 % (0-3); EOS # 0.1 x10^3/uL (0.0-0.7); EOS % 2 % (0-3); HEMOGLOBIN 13.4 g/dL (12.0-15.5); LYMPH # 1.2 x10^3/uL (1.0-4.8); LYMPH % 25 % (24-48); MEAN CORPUSCULAR HEMOGLOBIN 29 pg (25-35); MEAN CORPUSCULAR HGB CONC 33 g/dL (31-37); MEAN CORPUSCULAR VOLUME 88 fL (79-100); MONO # 0.4 x10^3/uL (0.0-1.1); MONO % 8 % (0-9); NEUT # 3.3 x10^3/uL (1.8-7.7); NEUT % 65 % (31-73); PLATELET COUNT 247 x10^3/uL (140-400); RED BLOOD COUNT 4.67 x10^6/uL (3.50-5.40); RED CELL DISTRIBUTION WIDTH 13.8 % (11.5-14.5); WHITE BLOOD COUNT 5.1 x10^3/uL (4.0-11.0)
[2021-03-24 10:41] LABS: BILIRUBIN,URINE NEGATIVE (NEG); CLARITY,URINE CLEAR; COLOR,URINE YELLOW; NITRITE,URINE NEGATIVE (NEG); PROTEIN,URINE NEGATIVE (NEG-TRACE); UROBILINOGEN,URINE 0.2 mg/dL (0.2 mg/dL)
[2021-03-24 10:52] LABS: AMORPHOUS SEDIMENT,UR PRESENT /HPF
[2021-03-24 10:53] LABS: BACTERIA,URINE FEW /HPF (0-FEW); RBC,URINE OCC /HPF (0-2)
[2021-03-24 11:07] LABS: ALBUMIN/GLOBULIN RATIO 1.2 (1.0-1.7); CALCIUM 9.1 mg/dL (8.5-10.1); CREATININE 0.7 mg/dL (0.6-1.0); GFR 87.9; TOTAL BILIRUBIN 0.7 mg/dL (0.2-1.0); TOTAL PROTEIN 7.3 g/dL (6.4-8.2)
[2021-03-24 11:09] LABS: CHOLESTEROL/HDL RATIO 2.3
[2021-03-24 19:16] LABS: FSH 108.4 mIU/mL (.); LUTEINIZING HORMONE 49.8 mIU/mL (.)
== END ==
LOC: LAB 10:03
PROVIDERS: ATTEND Family Medicine
DX: Z00.00 Encounter for general adult medical examination without abnormal findings (principal); M25.50 Pain in unspecified joint; E78.00 Pure hypercholesterolemia, unspecified; R23.2 Flushing
CPT/HCPCS: 36415; 80053; 80061; 81001; 82672; 83001; 83002; 84443; 85025; 87086

== ENCOUNTER → 2021-05-21 | Outpatient (CLI) | payer OTHER ==
[2019-09-28 11:42] VITALS: BP 114/63
[2021-05-21 23:07] LABS: FSH 108.2 mIU/mL (.); LUTEINIZING HORMONE 34.9 mIU/mL (.)
[2021-05-22 04:26] LABS: ESTRADIOL LEVEL 8.3 pg/mL (.)
[2021-05-22 05:15] LABS: PROGESTERONE 0.2 ng/mL (.)
[2021-05-24 11:15] LABS: TESTOSTERONE FREE 0.31 ng/dL (0.10-0.85)
== END ==
LOC: LAB 14:51
PROVIDERS: ATTEND Obstetrics & Gynecology
DX: N95.1 Menopausal and female climacteric states (principal)
CPT/HCPCS: 36415; 82627; 82670; 83001; 83002; 84144; 84402; 84403

== ENCOUNTER → 2021-08-11 | Outpatient (CLI) | payer OTHER ==
[2019-09-28 11:42] VITALS: BP 114/63
--- NOTE | 2021-08-11 15:43 | KCIC ---
EXAMINATION: Magnetic resonance imaging (MRI) of the cervical spine without contrast 08/11/2021 2:15 PM HISTORY: Cervicalgia. Headache. TECHNIQUE: Multiplanar multi-weighted MRI of the cervical spine was performed without intravenous con trast using the standard cervical spine protocol. Contrast information: None administered COMPARISON: None available. FINDINGS: The alignment of the cervical spine is normal. Vertebral bodies demonstrate normal signal intensity o n all sequences. No acute fracture is identified; however, if trauma is suspected, a CT scan would b e a more sensitive examination for fractures. The craniocervical junction is normal. The visualized portions of the skull base and the posterior fossa are normal. The spinal cord demonstrates normal signal intensity on all sequences. Mild disc height loss at C5-C6 with disc desiccation. Mild anteri or marginal osteophytosis at C5-C6. No soft tissue abnormality is identified. Normal signal voids ar e present in the vertebral arteries. C2-C3: The disk is normal in configuration. There is no facet arthropathy. There is no uncovertebral joint disease. There is no neuroforaminal stenosis. There is no spinal canal stenosis. C3-C4: The disk is normal in configuration. There is no facet arthropathy. There is no uncovertebral joint disease. There is no neuroforaminal stenosis. There is no spinal canal stenosis. C4-C5: The disk is normal in configuration. There is no facet arthropathy. There is no uncovertebral joint disease. There is no neuroforaminal stenosis. There is no spinal canal stenosis. C5-C6: There is a posterior disc osteophyte complex. Mild facet arthropathy, left greater than right. Mild uncovertebral joint disease. Mild to moderate left and mild right neural foraminal stenosis. Mi ld spinal canal sinuses without deformity of the cord or cord signal alteration. There is minimal lig amentum flavum infolding. C6-C7: The disk is normal in configuration. There is no facet arthropathy. There is no uncovertebral joint disease. There is no neuroforaminal stenosis. There is no spinal canal stenosis. C7-T1: The disk is normal in configuration. There is no facet arthropathy. There is no uncovertebral joint disease. There is no neuroforaminal stenosis. There is no spinal canal stenosis. IMPRESSION: Mild degenerative changes of the cervical spine as described in detail above. Electronically signed by: Charley Moses MD (08/11/2021 3:41 PM) [id number]
== END ==
LOC: KCIC MRI 13:47
PROVIDERS: ATTEND Family Medicine
DX: M47.812 Spondylosis without myelopathy or radiculopathy, cervical region (principal); M48.02 Spinal stenosis, cervical region; M48.8X2 Other specified spondylopathies, cervical region; M25.78 Osteophyte, vertebrae; G93.5 Compression of brain; R51.9 Headache, unspecified; M50.322 Other cervical disc degeneration at C5-C6 level
CPT/HCPCS: 72141

== ENCOUNTER → 2021-09-26 | Outpatient (CLI) | payer OTHER ==
[2019-09-28 11:42] VITALS: BP 114/63
[2021-09-26 14:48] LABS: BASO % 1 % (0-3); EOS # 0.1 x10^3/uL (0.0-0.7); EOS % 2 % (0-3); HEMATOCRIT 40.9 % (36.0-47.0); HEMOGLOBIN 13.5 g/dL (12.0-15.5); LYMPH # 1.3 x10^3/uL (1.0-4.8); LYMPH % 30 % (24-48); MEAN CORPUSCULAR HEMOGLOBIN 28 pg (25-35); MEAN CORPUSCULAR HGB CONC 33 g/dL (31-37); MEAN CORPUSCULAR VOLUME 84 fL (79-100); MONO # 0.2 x10^3/uL (0.0-1.1); MONO % 5 % (0-9); NEUT # 2.6 x10^3/uL (1.8-7.7); NEUT % 63 % (31-73); PLATELET COUNT 260 x10^3/uL (140-400); RED BLOOD COUNT 4.84 x10^6/uL (3.50-5.40); RED CELL DISTRIBUTION WIDTH 13.5 % (11.5-14.5); WHITE BLOOD COUNT 4.2 x10^3/uL (4.0-11.0)
[2021-09-26 14:57] LABS: ALBUMIN 3.9 g/dL (3.4-5.0); ALBUMIN/GLOBULIN RATIO 1.1 (1.0-1.7); CALCIUM 8.5 mg/dL (8.5-10.1); CHOLESTEROL/HDL RATIO 2.4; CREATININE 0.7 mg/dL (0.6-1.0); GFR 87.9; POTASSIUM 4.1 mmol/L (3.5-5.1); TOTAL BILIRUBIN 0.7 mg/dL (0.2-1.0); TOTAL PROTEIN 7.3 g/dL (6.4-8.2)
== END ==
LOC: LAB 14:15
PROVIDERS: ATTEND Family Medicine
DX: R53.83 Other fatigue (principal)
CPT/HCPCS: 36415; 80053; 80061; 82607; 82746; 85025

== ENCOUNTER → 2022-01-10 | Outpatient (CLI) | payer OTHER ==
[2019-09-28 11:42] VITALS: BP 114/63
--- NOTE | 2022-01-12 08:37 | RAD ---
CT maxillofacial History: Maxillary sinusitis Axial helical images of the face including orbits and sinuses were obtained without contrast. Axial a nd coronal reconstruction was performed. The nasal septum is slightly deviated to the right. The ostiomeatal complexes are narrow but patent. There is a 1.6 cm polyp versus mucous retention cyst in the floor of the left maxillary sinus.. The v isualized osseous structures appear intact. The orbits appear normal. Impression: 1. 1.6 cm polyp versus mucosal retention cyst in the floor of the left maxillary sinus. 2. No acute findings. End of impression PQRS Compliance Statement: One or more of the following individualized dose reduction techniques were utilized for this examinat ion: 1. Automated exposure control 2. Adjustment of the mA and/or kV according to patient size 3. Use of iterative reconstruction technique Electronically signed by: Kal Jolly III, MD (01/12/2022 8:35 AM) [facility]
== END ==
LOC: RAD 12:48
PROVIDERS: ATTEND Ophthalmology
DX: J34.2 Deviated nasal septum (principal); J32.0 Chronic maxillary sinusitis; H04.223 Epiphora due to insufficient drainage, bilateral
CPT/HCPCS: 70480